=== PATIENT | male | born 1950 | race Caucasian/White ===

== ENCOUNTER → 2025-05-21 | Outpatient (REF) | payer MEDICARE, OTHER, MEDICAID, SELFPAY ==
[2025-05-22 08:22] LABS: Mucous, Urine 0 SEEN /hpf (<or=2+); Red Blood Cells-Urine 0 SEEN /hpf (0-5)
[2025-05-22 09:04] LABS: Color, Urine Yellow (Yellow); Glucose, Dipstick Normal (Normal); Ketone-Dipstick Negative (Negative); Leukocyte Esterase-Dipstick Negative /ul (Negative); Nitrite-Dipstick Negative (Negative); Occult Blood-Urine 10 /ul (Negative); Protein-Dipstick 15 mg/dl (Negative); Specific Gravity, Urine 1.010 (1.002-1.030); Urine Bilirubin Dipstick Negative (Negative)
[2025-05-22 09:33] LABS: Squamous Epithelial Cells - UA 0-5 SEEN /hpf (0-5)
== END ==
LOC: OLS.SANC 16:00
DX: N39.0 Urinary tract infection, site not specified (principal)
CPT/HCPCS: 81001; 87086; 87088